=== PATIENT | female | born 1985 | race Caucasian/White ===

== ENCOUNTER 2016-11-01 11:02 | Emergency (ER) | payer OTHER ==
[~2016-11-01] VITALS: Ht 167.6 cm; Wt 123.1 kg
[~2016-11-01 11:02] MED LIST: AMOXICILLIN500 M1 PO; AMOXICILLIN500 MG PO; Chromagen, Feogen, M PO; DOLOPHINE HCL5 MG PO; FIORICET WI1 CAPSULE PO; FLEXERIL10 MG PO; MOTRIN800 MG PO; Methadone PO; Motrin PO; NOHOMEMEDS; Ortho Cyclen 28 PO; PERCOCET 5/31 TABLET PO; TORADOL; TYLENOL325 M1 PO; VICODIN,LORT1 TABLET PO
[2016-11-01] MEDS ORDERED: PERCOCET 5/31 TABLET PO (12:36)
[2016-11-01] MEDS ORDERED: MOTRIN800 MG PO (12:36)
[2016-11-01 13:04] VITALS: BP 140/64
== END 2016-11-01 13:05 | disposition home or self-care (01) ==
LOC: EME 11:02
DX: I80.02 Phlebitis and thrombophlebitis of superficial vessels of left lower extremity (principal); G89.29 Other chronic pain; Z79.891 Long term (current) use of opiate analgesic; Z79.3 Long term (current) use of hormonal contraceptives; F17.200 Nicotine dependence, unspecified, uncomplicated
CPT/HCPCS: 93971; 99281; 99284